=== PATIENT | female | born 1985 | race Caucasian/White ===

== ENCOUNTER 2016-04-18 15:36 | Emergency (ER) | payer MEDICAID, OTHER ==
[2016-04-18 18:27] LABS: SPECIFIC GRAVITY 1.025 (1.001-1.030); URINE BILIRUBIN NEGATIVE (NEGATIVE); URINE BLOOD TRACE (NEGATIVE); URINE GLUCOSE (UA) NEGATIVE (NEGATIVE); URINE LEUKOCYTE ESTERASE TRACE (NEGATIVE); URINE NITRITE NEGATIVE (NEGATIVE); URINE PROTEIN TRACE (NEGATIVE); URINE UROBILINOGEN NORMAL (0-1 mg/dl)
[2016-04-18 18:30] LABS: URINE APPEARANCE HAZY
[2016-04-18 18:31] LABS: URINE COLOR YELLOW
[2016-04-18 18:37] LABS: HCG,QUALITATIVE URINE NEGATIVE
[2016-04-18 18:43] LABS: URINE BACTERIA FEW; URINE RBC 0-2 /hpf; URINE WBC 0-2 /hpf
[2016-04-18] MEDS ORDERED: CYCLOBENZAPRINE HCL 10 MG TABLET ONE (18:50)
== END 2016-04-18 19:05 | disposition home or self-care (01) ==
LOC: ED 15:36
DX: M54.5 Low back pain (principal); X50.0XXA Overexertion from strenuous movement or load, initial encounter; X50.3XXA Overexertion from repetitive movements, initial encounter; Y93.H9 Activity, other involving exterior property and land maintenance, building and construction; Y92.9 Unspecified place or not applicable